=== PATIENT | female | born 1965 | race Caucasian/White ===

== ENCOUNTER 2016-08-17 06:40 | Day surgery (SDC) | payer BC ==
[~2016-08-17] VITALS: Ht 154.9 cm; Wt 61.2 kg
[~2016-08-17 06:40] MED LIST: ACID REDUCER10 MG PO; CEROVITE ADVANC1 TAB PO; FISH OIL1 GM PO
== END 2016-08-17 09:55 | disposition short-term general hospital (02) ==
LOC: SURGOP 06:40
PROC: 0DBE8ZZ Excision of Large Intestine, Via Natural or Artificial Opening Endoscopic (ICD-10-PCS; principal; 2016-08-17)
DX: D12.6 Benign neoplasm of colon, unspecified (principal); K64.4 Residual hemorrhoidal skin tags; K21.9 Gastro-esophageal reflux disease without esophagitis; Z90.49 Acquired absence of other specified parts of digestive tract; Z98.49 Cataract extraction status, unspecified eye; Z98.82 Breast implant status; Z87.891 Personal history of nicotine dependence
CPT/HCPCS: J2175; J2250